=== PATIENT | female | born 1985 | race Caucasian/White ===

== ENCOUNTER 2017-04-29 22:04 | Emergency (ER) | payer SELFPAY ==
[~2017-04-29] VITALS: Ht 165.1 cm; Wt 58.0 kg
[~2017-04-29 22:04] MED LIST: AMOXICILLIN500 MG OR; BACTRIM DS1 TAB PO; CEPHALEXIN500 MG OR; CIPRO500 MG OR; FOLIC ACID1 MG OR; LORTAB 5 OR; LORTAB5 OR; MACROBID100 MG OR; MACRODANTIN100 MG OR; MECLIZINE12.5 M1 PO; NAPROSYN375 MG PO; NO CURRENT MEDS; NO HOME MEDS; PENICILLN VK500 MG OR; PENICILLN VK500 MG PO; PERCOCET 5/325M1 TAB OR; PRENATA2 OR; PRENATA5 OR; PRENATABS OR; ULTRAM50 MG OR; ZOFRAN ODT4 MG OR; asa OR
[2017-04-29] MEDS ORDERED: SEROQUEL100 MG PO ×2 (23:24→23:25)
[2017-04-29] MEDS ORDERED: [UNRECOGNIZED DRUG - REMARK] PO (23:24)
[2017-04-29] MEDS ORDERED: TRAZODONE50 MG PO (23:25)
[2017-04-29] MEDS ORDERED: LORTAB 1010 MG PO (23:42)
[2017-04-29] MEDS ORDERED: AMOXICILLIN500 MG PO (23:42)
[2017-04-29 23:58] VITALS: BP 135/94
== END 2017-04-30 00:09 | disposition home or self-care (01) | DRG 159 ==
LOC: ED 22:04
DX: K04.7 Periapical abscess without sinus (principal); K03.81 Cracked tooth; G40.909 Epilepsy, unspecified, not intractable, without status epilepticus

== ENCOUNTER 2017-10-14 16:59 | Emergency (ER) | payer SELFPAY ==
[~2017-10-14] VITALS: Ht 165.1 cm; Wt 54.5 kg
[~2017-10-14 16:59] MED LIST changes: +AMOXICILLIN500 MG PO; +LORTAB 1010 MG PO; +SEROQUEL100 MG PO; +TRAZODONE50 MG PO; +[UNRECOGNIZED DRUG - REMARK] PO
[2017-10-14 17:05] VITALS: BP 135/83
[2017-10-14] MEDS ORDERED: OXCARBAZEPINE300 MG PO (17:07)
[2017-10-14 17:43] LABS: HEMATOCRIT 36.5 % (37.0-47.0); IMMATURE GRANULOCYTES 0.4 % (0.0-5.0); MEAN CELL VOLUME 93.4 fL CALC (80.0-100.0); MEAN CORPUSCULAR HGB 29.7 pG CALC (26.0-32.0); MEAN CORPUSCULAR HGB CONC 31.8 g/L CALC (32.0-36.0); NEUT# 9.73 thou/uL (2.00-7.15); RED BLOOD COUNT 3.91 mill/uL (4.20-5.60); RED CELL DISTRI WIDTH 13.2 % (11.5-15.5)
[2017-10-14 17:44] LABS: HEMOGLOBIN 11.6 g/dl (12.0-16.0)
[2017-10-14 18:00] LABS: ALKALINE PHOSPHATASE 71 u/l (38-126); BILIRUBIN, TOTAL 0.4 mg/dL (0.0-1.4); BUN 6 mg/dL (7-17); BUN/CREATININE RATIO 11 (12-20 (CALC)); CARBON DIOXIDE 25 mmol/l (22-30); CHLORIDE 103 mmol/l (95-108); CREATININE 0.6 mg/dL (0.5-1.0); GFR > 60 ML/MIN (>=60 (CALC)); GFR FOR AFR.AMER. > 60 ML/MIN (>=60 (CALC)); SGOT/AST 14 u/l (14-36); SGPT/ALT 22 u/l (9-52); SODIUM 138 mmol/l (137-146); TOTAL PROTEIN 6.3 g/dL (6.3-8.2)
[2017-10-14 18:02] LABS: ALBUMIN 3.4 g/dL (3.2-5.0); ANION GAP 13 (6-22 (CALC)); POTASSIUM 3.2 mmol/l (3.5-5.1)
[2017-10-14] MEDS ORDERED: IBUPROFEN600 MG PO (20:01)
[2017-10-14] MEDS ORDERED: PENICILLN VK500 MG PO (20:01)
== END 2017-10-14 20:18 | disposition home or self-care (01) | DRG 159 ==
LOC: ED 16:59
DX: K04.7 Periapical abscess without sinus (principal); K03.81 Cracked tooth; G40.909 Epilepsy, unspecified, not intractable, without status epilepticus; F17.210 Nicotine dependence, cigarettes, uncomplicated
CPT/HCPCS: Q9967

== ENCOUNTER 2018-11-05 18:09 | Emergency (ER) | payer OTHER ==
[~2018-11-05] VITALS: Ht 165.1 cm; Wt 52.0 kg
[~2018-11-05 18:09] MED LIST changes: +IBUPROFEN600 MG PO; +OXCARBAZEPINE300 MG PO
[2018-11-05 19:15] VITALS: BP 112/70
[2018-11-05] MEDS ORDERED: KEFLEX500 M1 PO (19:20)
== END 2018-11-05 19:30 | disposition home or self-care (01) ==
LOC: ED 18:09
DX: S91.322A Laceration with foreign body, left foot, initial encounter (principal); F17.210 Nicotine dependence, cigarettes, uncomplicated; W22.8XXA Striking against or struck by other objects, initial encounter; Y92.833 Campsite as the place of occurrence of the external cause

== ENCOUNTER 2019-05-08 | Emergency (ER) | payer OTHER ==
[~2019-05-08] MED LIST changes: +KEFLEX500 M1 PO
[2019-05-08] MEDS ORDERED: KEFLEX500 M1 PO (13:34)
== END 2019-05-08 13:55 | disposition home or self-care (01) ==
DX: S61.111A Laceration without foreign body of right thumb with damage to nail, initial encounter (principal); W26.0XXA Contact with knife, initial encounter; Y92.096 Garden or yard of other non-institutional residence as the place of occurrence of the external cause

== ENCOUNTER 2020-01-18 14:04 | Emergency (ER) | payer OTHER ==
[~2020-01-18] VITALS: Ht 165.1 cm; Wt 55.0 kg
[2020-01-18] MEDS ORDERED: ATIVAN1 MG PO (14:36)
[2020-01-18] MEDS ORDERED: FLEXERIL5 M1 PO (15:08)
[2020-01-18] MEDS ORDERED: NAPROXEN DR500 MG PO (15:08)
[2020-01-18 16:16] VITALS: BP 118/71
== END 2020-01-18 16:16 | disposition home or self-care (01) | DRG 552 ==
LOC: ED 14:04
DX: S16.1XXA Strain of muscle, fascia and tendon at neck level, initial encounter (principal); S00.83XA Contusion of other part of head, initial encounter; G40.909 Epilepsy, unspecified, not intractable, without status epilepticus; F17.200 Nicotine dependence, unspecified, uncomplicated; V49.50XA Passenger injured in collision with unspecified motor vehicles in traffic accident, initial encounter

== ENCOUNTER 2024-04-24 18:11 | Emergency (ER) | payer OTHER ==
[~2024-04-24] VITALS: Ht 165.1 cm; Wt 72.0 kg
[~2024-04-24 18:11] MED LIST changes: +ATIVAN1 MG PO; +FLEXERIL5 M1 PO; +NAPROXEN DR500 MG PO
[2024-04-24] MEDS ORDERED: PENICILLN VK500 MG PO (18:23)
[2024-04-24] MEDS ORDERED: IBUPROFEN600 MG PO (18:23)
[2024-04-24] MEDS ORDERED: PENicillin V POTASSIUM 500 MG/TAB PO ONE (18:25)
[2024-04-24 18:35] VITALS: BP 139/93
== END 2024-04-24 18:37 | disposition home or self-care (01) | DRG 159 ==
LOC: ED 18:11
DX: K02.9 Dental caries, unspecified (principal); S02.5XXA Fracture of tooth (traumatic), initial encounter for closed fracture; G40.909 Epilepsy, unspecified, not intractable, without status epilepticus; F17.210 Nicotine dependence, cigarettes, uncomplicated; X58.XXXA Exposure to other specified factors, initial encounter